=== PATIENT | female | born 1950 | race Caucasian/White ===

== ENCOUNTER 2017-08-01 08:30 | Day surgery (SDC) | payer OTHER ==
[~2017-08-01 08:30] MED LIST: VERSED ONE
[2017-08-01] MEDS ORDERED: NS 500 ML IV 500 ML IV ONE (09:02)
[2017-08-01] MEDS ORDERED: TETRACAINE 0.5% OPHTH 1 DOSE AFFEYE ONE ×4 (09:03→11:27)
[2017-08-01] MEDS ORDERED: VIGAMOX 0.5% OPHTH 1 DOSE AFFEYE ONE ×4 (09:05→11:49)
[2017-08-01] MEDS ORDERED: PROLENSA OPHTH 1 DOSE AFFEYE ONE (09:17)
[2017-08-01] MEDS ORDERED: ALPHAGAN-P OPHTH 1 DOSE AFFEYE ONE (09:18)
[2017-08-01] MEDS ORDERED: CYCLOGYL 1% OPHTH 1 DOSE OP ONE ×3 (09:20→09:25)
[2017-08-01] MEDS ORDERED: MYDRIACIL OPHTH 1 DOSE AFFEYE ONE ×3 (09:20→09:25)
[2017-08-01] MEDS ORDERED: AK-DILATE 2.5% OPHTH 1 DOSE OP ONE ×3 (09:20→09:25)
[2017-08-01] MEDS ORDERED: VERSED IVP ONE (10:19)
[2017-08-01] MEDS ORDERED: BETADINE OPHTH SOLN 5% EACHEYE ONE (11:27)
[2017-08-01] MEDS ORDERED: XYLOCAINE-MPF 1% IJ ONE ×2 (11:49→11:58)
[2017-08-01] MEDS ORDERED: ADRENALINE CHL INJ IJ ONE ×2 (11:49→11:58)
[2017-08-01] MEDS ORDERED: DUOVISC IO ONE ×2 (11:49→11:58)
[2017-08-01] MEDS ORDERED: BSS OPHTH (PLAIN) 500 ML with VANCOMYCIN HCL 500 MG VIAL 25 MG, ADRENALINE CHL INJ 1 MG IR ONE ×3 (11:51)
[2017-08-01] MEDS ORDERED: TobraDEX OPHTH SUSP 1 DOSE AFFEYE ONE ×2 (12:00→12:12)
[2017-08-01 16:22] VITALS: BP 144/78
== END 2017-08-01 12:40 | disposition home or self-care (01) ==
LOC: SURG1 08:30
PROVIDERS: ATTEND Ophthalmology
PROC: 08RK3JZ Replacement of Left Lens with Synthetic Substitute, Percutaneous Approach (ICD-10-PCS; principal; 2017-08-01 11:15)
PROC: 08DK3ZZ Extraction of Left Lens, Percutaneous Approach (ICD-10-PCS; principal; 2017-08-01 11:15)
DX: H25.12 Age-related nuclear cataract, left eye (principal); H25.012 Cortical age-related cataract, left eye; H52.222 Regular astigmatism, left eye
CPT/HCPCS: A4217; J0170; J2250; J3370

== ENCOUNTER 2017-08-29 07:04 | Day surgery (SDC) | payer OTHER ==
[2017-08-29] MEDS ORDERED: NS 500 ML IV 500 ML IV ONE (07:09)
[2017-08-29] MEDS ORDERED: TETRACAINE 0.5% OPHTH 1 DOSE AFFEYE ONE ×5 (07:15→09:52)
[2017-08-29] MEDS ORDERED: VIGAMOX 0.5% OPHTH 1 DOSE AFFEYE ONE ×3 (07:17→07:27)
[2017-08-29] MEDS ORDERED: PROLENSA OPHTH 1 DOSE AFFEYE ONE (07:29)
[2017-08-29] MEDS ORDERED: ALPHAGAN-P OPHTH 1 DOSE AFFEYE ONE (07:31)
[2017-08-29] MEDS ORDERED: MYDRIACIL OPHTH 1 DOSE AFFEYE ONE ×6 (07:33→07:38)
[2017-08-29] MEDS ORDERED: AK-DILATE 2.5% OPHTH 1 DOSE OP ONE ×6 (07:33→07:38)
[2017-08-29] MEDS ORDERED: CYCLOGYL 1% OPHTH 1 DOSE OP ONE ×6 (07:33→07:38)
[2017-08-29] MEDS ORDERED: VERSED ONE (07:38)
[2017-08-29] MEDS ORDERED: VERSED IVP ONE (09:23)
[2017-08-29] MEDS ORDERED: AK-DILATE 10% OPHTH 1 DOSE AFFEYE ONE ×2 (09:42)
[2017-08-29] MEDS ORDERED: BETADINE OPHTH SOLN 5% EACHEYE ONE (09:51)
[2017-08-29] MEDS ORDERED: TobraDEX OPHTH SUSP 1 DOSE AFFEYE ONE ×2 (09:51→10:19)
[2017-08-29] MEDS ORDERED: XYLOCAINE-MPF 1% IJ ONE ×2 (10:02→10:06)
[2017-08-29] MEDS ORDERED: DUOVISC IO ONE ×2 (10:02→10:06)
[2017-08-29] MEDS ORDERED: ADRENALINE CHL INJ IJ ONE ×2 (10:02→10:06)
[2017-08-29] MEDS ORDERED: BSS OPHTH (PLAIN) 500 ML with VANCOMYCIN HCL 500 MG VIAL 25 MG, ADRENALINE CHL INJ 1 MG IR ONE ×3 (10:06)
[2017-08-29 10:36] VITALS: BP 120/63
== END 2017-08-29 10:40 | disposition home or self-care (01) ==
LOC: SURG1 07:04
PROVIDERS: ATTEND Ophthalmology
PROC: 08RJ3JZ Replacement of Right Lens with Synthetic Substitute, Percutaneous Approach (ICD-10-PCS; principal; 2017-08-29 09:00)
PROC: 08DJ3ZZ Extraction of Right Lens, Percutaneous Approach (ICD-10-PCS; principal; 2017-08-29 09:00)
DX: H25.11 Age-related nuclear cataract, right eye (principal); H25.011 Cortical age-related cataract, right eye; H52.221 Regular astigmatism, right eye
CPT/HCPCS: A4217; J0170; J2250; J3370